=== PATIENT | female | born 1975 | race Two or more races ===

== ENCOUNTER 2016-05-13 20:03 | Emergency (ER) | payer SELFPAY ==
[~2016-05-13] VITALS: Ht 160 cm; Wt 111.1 kg
[2016-05-13] MEDS ORDERED: DuoNeb 0.5-3(2.5)mg/3ml neb HHN ONE (20:45)
[2016-05-13 21:07] VITALS: BP 124/71
[2016-05-13] MEDS ORDERED: ALBUTEROL SULF8.5 GM INH (21:07)
[2016-05-13] MEDS ORDERED: GUAIFENESIN-CO118 M1 ORAL (21:07)
[2016-05-13 21:14] VITALS: BP 135/83
--- NOTE | 2016-05-13 21:53 | Emergency Room Report ---
History of Present Illness General Chief Complaint: Flu Like Symptoms Source: Patient Present Illness HPI Patient is a 40-year-old female who presented after increased cough and difficulty breathing. Patient gradual onset of symptoms. Patient had been sick for approximately 5 days. Had subjective fever and nonproductive cough. The patient had recently been having muscle aches. She denies any leg pain or swelling she reported having had generalized body aches. Allergies: Coded Allergies: No Known Allergies (Unverified , 05/13/16) Patient History Past Medical History: see triage record Last Menstrual Period: 05/06/16 Now: No Reviewed Nursing Documentation: PMH: Agreed, PSxH: Agreed Nursing Documentation-PMH Hx Hypertension: Yes Review of Systems All Other Systems: negative except mentioned in HPI Physical Exam Vital Signs Date Time Temp Pulse Resp B/P Pulse Ox O2 Delivery O2 Flow Rate FiO2 05/13/16 20:13 98.1 87 15 139/85 95 Room Air General Appearance: well appearing, no apparent distress, alert, GCS 15 Head: normocephalic, atraumatic ENT: hearing grossly normal, normal voice Neck: full range of motion, supple Respiratory: no respiratory distress, speaking full sentences Cardiovascular #1: normal inspection, regular rate, rhythm, no edema Gastrointestinal: normal inspection, normal bowel sounds, non tender, soft Musculoskeletal: normal inspection, back normal, no calf tenderness Neurologic: normal inspection, alert, oriented x3, responsive, normal gait Psychiatric: mood/affect normal Skin: no rash Medical Decision Making Diagnostic Impression: Primary Impression: Bronchitis ER Course Differential diagnosis included but was not limited to bronchitis, pneumonia, pulmonary embolism, pericarditis, asthma, foreign body. Patient's benign exam and does not appear to require any further imaging or laboratory testing at this time. The patient is advised to follow up with primary care doctor in 1-2 days. Patient is advised to return if any worsening condition or if any changes in status that are concerning. Chest X-Ray Diagnostic Results EP Interpretation: Yes Findings: no consolidation, no effusion, no pneumothorax, no acute cardiopulmonary disease Number of Views: 1 Last Vital Signs Date Time Temp Pulse Resp B/P Pulse Ox O2 Delivery O2 Flow Rate FiO2 05/13/16 21:14 87 17 135/83 98 Room Air 05/13/16 20:13 98.1 Status: improved Disposition: HOME, SELF-CARE Condition: Stable Scripts Guaifenesin/Codeine Phos* (ROBITUSSIN AC*) 118 Ml Liquid 5 ML ORAL Q6H Y for For Cough, #118 ML 0 Refills Prov: Saeid Soto 05/13/16 Albuterol Sulfate* (ALBUTEROL SULFATE MDI*) 8.5 Gm Hfa.aer.ad 2 PUFF INH Q6H, #1 INH 0 Refills Prov: Saeid Soto 05/13/16 Referrals: NOT CHOSEN IPA/MD,REFERRING (PCP) primary care physician Patient Instructions: Acute Bronchitis Saeid Soto May 13, 2016 21:53
--- NOTE | 2016-05-14 11:22 | Diagnostic Imaging Report ---
Clinical history: Acute shortness of breath. Technique: Portable AP chest radiograph was obtained. Comparison: None Findings: The lungs are well inflated and clear. There is no pneumonia or pulmonary edema. There is no pleural effusion or pneumothorax. The cardiac and mediastinal silhouettes are normal in appearance. The bony thorax is unremarkable. Impression: No acute cardiopulmonary process.
== END 2016-05-13 21:14 | disposition home or self-care (01) ==
LOC: EDBD 20:03 → EMR 21:00
DX: J20.9 Acute bronchitis, unspecified (principal); I10 Essential (primary) hypertension
CPT/HCPCS: 71010; 94640; 94664; 99284; J7620